=== PATIENT | male | born 1975 | race Caucasian/White ===

== ENCOUNTER 2023-03-27 09:06 | Inpatient (IN) | payer OTHER ==
[2023-03-27 09:47] VITALS: BMI 16.4
[2023-03-27] MEDS ORDERED: BENZONATATE 200 MG CAPSULE PO PRN (11:15)
[2023-03-27] MEDS ORDERED: NALOXONE HCL (KLOXXADO) 8 MG SPRAY NS PRN (11:15)
[2023-03-27] MEDS ORDERED: IBUPROFEN 400 MG TABLET (FP) PO PRN (11:15)
[2023-03-27] MEDS ORDERED: NALOXONE HCL 0.4 MG/ML VIAL IM PRN (11:15)
[2023-03-27] MEDS ORDERED: ACETAMINOPHEN 325 MG TABLET (FP) PO PRN (11:15)
[2023-03-27] MEDS ORDERED: hydrOXYzine PAMOATE 25 MG CAPSULE (FP) PO PRN (11:15)
[2023-03-27] MEDS ORDERED: IBUPROFEN 600 MG TABLET (FP) PO PRN (11:15)
[2023-03-27] MEDS ORDERED: methaDONE HCL 10 MG TABLET (FOR DETOX USE ONLY) PO ONE (11:15)
[2023-03-27] MEDS ORDERED: POLYETHYLENE GLYCOL (HEALTHYLAX) 3350 17 GM PACKET PO PRN (11:15)
[2023-03-27] MEDS ORDERED: DICYCLOMINE HCL 10 MG CAPSULE PO PRN (11:15)
[2023-03-27] MEDS ORDERED: BISMUTH SUBSALICYLATE 524 MG/30 ML PO PRN (11:15)
[2023-03-27] MEDS ORDERED: BENZOCAINE/MENTHOL (CHLORASEPTIC ) LOZENGE MM PRN (11:15)
[2023-03-27] MEDS ORDERED: guaiFENesin 600 MG TABLET.ER (FP) PO PRN (11:15)
[2023-03-27] MEDS ORDERED: cloNIDine HCL 0.1 MG TABLET PO PRN (11:15)
[2023-03-27] MEDS ORDERED: MAG HYDROX/AL HYDROX/SIMETH 30 ML UNIT-DOSE CUP PO PRN (11:15)
[2023-03-27] MEDS ORDERED: MAGNESIUM HYDROX 2400MG/30ML ORAL SUSPENSION 30 ML CUP PO PRN (11:15)
[2023-03-27] MEDS ORDERED: diazePAM 5 MG TABLET PO PRN (11:15)
[2023-03-27] MEDS ORDERED: ONDANSETRON *ODT* 4 MG TABLET ONE (11:50)
[2023-03-27] MEDS ORDERED: diazePAM 5 MG TABLET ONE (11:50)
[2023-03-27] MEDS ORDERED: methaDONE HCL 10 MG TABLET (FOR DETOX USE ONLY) ONE (11:50)
[2023-03-27] MEDS: ONDANSETRON *ODT* 4 MG TABLET SL PRN (11:53)
[2023-03-27] MEDS: diazePAM 5 MG TABLET PO SCH ×3 (12:30→22:29)
[2023-03-27] MEDS: THIAMINE HCL 100 MG TABLET (FP) PO SCH (22:29)
[2023-03-27] MEDS: MELATONIN 5 MG TABLETS PO SCH (22:29)
[2023-03-28] MEDS: diazePAM 5 MG TABLET PO SCH ×4 (05:29→22:11)
[2023-03-28] MEDS: ONDANSETRON *ODT* 4 MG TABLET SL PRN (09:36)
[2023-03-28] MEDS: PRENATAL VITAMINS W/ FOLIC ACID TABLET (FP) PO SCH (10:14)
[2023-03-28] MEDS: METHOCARBAMOL 500 MG TABLET PO PRN (10:14)
[2023-03-28 10:25] LABS: HEMATOCRIT 40.6 % (35.4-49); HEMOGLOBIN 13.6 GM/dL (11.7-16.9); MCH 23.4 pg (25.7-33.7); MCHC 33.4 g/dl (32.0-35.9); MEAN CELL VOLUME 69.9 fl (80-96); MEAN PLT VOLUME 9.1 fl (7.5-11.1); PLATELET COUNT 281 10^3/uL (134-434); RBC 5.81 M/mm3 (4.00-5.60); RDW 14.8 % (11.9-15.9); WHITE BLOOD COUNT 7.6 K/mm3 (4.0-10.0)
[2023-03-28 10:25] LABS: URINE APPEARANCE Clear; URINE BILIRUBIN Negative (NEGATIVE); URINE COLOR Yellow; URINE GLUCOSE (UA) Negative (NEGATIVE); URINE KETONE Trace (NEGATIVE); URINE LEUK ESTERASE Negative (NEGATIVE); URINE NITRITE Negative (NEGATIVE); URINE PROTEIN 1+ (NEGATIVE)
[2023-03-28 10:39] LABS: POTASSIUM 3.2 mmol/L (3.5-5.1)
[2023-03-28 10:41] LABS: CALCIUM 8.3 mg/dL (8.5-10.1)
[2023-03-28 10:42] LABS: ALBUMIN 2.7 g/dl (3.4-5.0); BLOOD UREA NITROGEN 13.5 mg/dL (7-18)
[2023-03-28 10:45] LABS: CREATININE 0.9 mg/dL (0.55-1.3)
[2023-03-28 10:47] LABS: BILIRUBIN,TOTAL 0.5 mg/dL (0.2-1); TOT PROT 6.4 g/dl (6.4-8.2)
[2023-03-28 11:02] LABS: EPI CELLS 59 /uL (0-25.1); HYALINE CASTS 22 /uL (0-3.1); URINE BACTERIA 3 /uL (0-1359); URINE RBC 36 /uL (0-23.9); URINE WBC 53 /uL (0-25.8)
[2023-03-28] MEDS ORDERED: POTASSIUM CHLORIDE ORAL LIQUID 20 MEQ/15 ML PO ONE (15:04)
[2023-03-28] MEDS: LOPERAMIDE HCL 2 MG CAPSULE PO PRN (15:37)
[2023-03-28] MEDS: THIAMINE HCL 100 MG TABLET (FP) PO SCH (22:11)
[2023-03-28] MEDS: POTASSIUM CHLORIDE ORAL LIQUID 20 MEQ/15 ML PO SCH (22:11)
[2023-03-28] MEDS: MELATONIN 5 MG TABLETS PO SCH (22:12)
[2023-03-29] MEDS: diazePAM 5 MG TABLET PO SCH ×3 (05:34→22:16)
[2023-03-29] MEDS: PRENATAL VITAMINS W/ FOLIC ACID TABLET (FP) PO SCH (09:43)
[2023-03-29] MEDS: POTASSIUM CHLORIDE ORAL LIQUID 20 MEQ/15 ML PO SCH ×2 (09:43→22:16)
[2023-03-29] MEDS ORDERED: methaDONE HCL 10 MG TABLET (FOR DETOX USE ONLY) PO ONE (10:00)
[2023-03-29] MEDS: ONDANSETRON *ODT* 4 MG TABLET SL PRN (11:40)
[2023-03-29] MEDS: THIAMINE HCL 100 MG TABLET (FP) PO SCH (22:16)
[2023-03-29] MEDS: SUVOREXANT 10 MG TABLET PO PRN (22:18)
[2023-03-30] MEDS: LOPERAMIDE HCL 2 MG CAPSULE PO PRN (02:25)
[2023-03-30] MEDS ORDERED: diazePAM 5 MG TABLET PO SCH (06:00)
[2023-03-30] MEDS: PRENATAL VITAMINS W/ FOLIC ACID TABLET (FP) PO SCH (09:35)
[2023-03-30] MEDS: POTASSIUM CHLORIDE ORAL LIQUID 20 MEQ/15 ML PO SCH (09:35)
[2023-03-30] MEDS: ONDANSETRON *ODT* 4 MG TABLET SL PRN (09:35)
[2023-03-30] MEDS: chlordiazePOXIDE HCL 10 MG CAPSULE PO SCH ×2 (09:37→22:22)
[2023-03-30] MEDS: THIAMINE HCL 100 MG TABLET (FP) PO SCH (22:22)
[2023-03-30] MEDS: SUVOREXANT 10 MG TABLET PO PRN (22:24)
[2023-03-31] MEDS ORDERED: diazePAM 5 MG TABLET PO ONE (06:00)
[2023-03-31] MEDS ORDERED: chlordiazePOXIDE HCL 10 MG CAPSULE PO ONE (06:00)
[2023-03-31] MEDS ORDERED: methaDONE HCL 10 MG TABLET (FOR DETOX USE ONLY) PO ONE (10:00)
[2023-03-31] MEDS: PRENATAL VITAMINS W/ FOLIC ACID TABLET (FP) PO SCH (10:26)
[2023-03-31] MEDS: METHOCARBAMOL 500 MG TABLET PO PRN (10:27)
[2023-03-31] MEDS ORDERED: NICOTINE POLACRILEX 2 MG GUM BC PRN (10:31)
[2023-03-31] MEDS: THIAMINE HCL 100 MG TABLET (FP) PO SCH (22:17)
[2023-03-31] MEDS: SUVOREXANT 10 MG TABLET PO PRN (22:17)
[2023-04-01] MEDS: ONDANSETRON *ODT* 4 MG TABLET SL PRN (04:24)
[2023-04-01] MEDS ORDERED: chlordiazePOXIDE HCL 10 MG CAPSULE PO ONE (06:00)
[2023-04-01 06:21] VITALS: RESP 16
[2023-04-01 09:21] VITALS: BP 140/78; PULSE 85; TEMP 98.2
[2023-04-01] MEDS: PRENATAL VITAMINS W/ FOLIC ACID TABLET (FP) PO SCH (09:33)
== END 2023-04-01 09:40 | disposition other institution (70) | DRG 773 ==
LOC: SUATTDRO 09:06 → YASAS 09:06 → Y6N 12:07
PROVIDERS: ADMIT Allergy & Immunology; ATTEND Surgery
PROC: HZ2ZZZZ Detoxification Services for Substance Abuse Treatment (ICD-10-PCS; principal; 2023-03-27)
DX: F11.23 Opioid dependence with withdrawal (principal); F10.230 Alcohol dependence with withdrawal, uncomplicated; F14.20 Cocaine dependence, uncomplicated; F17.210 Nicotine dependence, cigarettes, uncomplicated; F19.282 Other psychoactive substance dependence with psychoactive substance-induced sleep disorder; F19.24 Other psychoactive substance dependence with psychoactive substance-induced mood disorder; E87.6 Hypokalemia; K08.109 Complete loss of teeth, unspecified cause, unspecified class; Z62.810 Personal history of physical and sexual abuse in childhood; R63.4 Abnormal weight loss; Z68.1 Body mass index [BMI] 19.9 or less, adult; Z28.310 Unvaccinated for COVID-19; Z28.9 Immunization not carried out for unspecified reason; Z59.00 Homelessness unspecified
CPT/HCPCS: 36415; 80053; 81003; 84132; 85027; 86780; 87086; 87635; 87811; 93005; 93010; Q0162